=== PATIENT | female | born 1940 | race Caucasian/White ===

== ENCOUNTER 2018-01-18 10:37 | Outpatient (CLI) | payer MEDICARE | END 2018-01-18 10:38 | disposition home or self-care (01) | LOC: BICMAMMO 10:37 | PROVIDERS: ATTEND Internal Medicine Medical Oncology | DX: Z12.31 Encounter for screening mammogram for malignant neoplasm of breast (principal); Z80.3 Family history of malignant neoplasm of breast; Z85.3 Personal history of malignant neoplasm of breast | CPT/HCPCS: 77063; 77067 ==

== ENCOUNTER 2019-01-21 08:09 | Outpatient (CLI) | payer MEDICARE ==
--- NOTE | 2019-01-21 08:51 | MMO ---
Bilateral MAMMO Bilat Screen [facility]. CLINICAL HISTORY: Patient is 78 years old and is seen for screening. The patient has the following family history of breast cancer: maternal aunt. 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 The patient has a history of left Lumpectomy in May, - malignant and left Ultrasound Guided Core Biopsy in April,. VIEWS: The views performed were: bilateral craniocaudal with tomosynthesis and bilateral mediolateral oblique with tomosynthesis. FILMS COMPARED: The present examination has been compared to prior imaging studies performed at [facility] on 01/08/2015, 01/14/2016, 01/17/2017 and 01/18/2018. MAMMOGRAM FINDINGS: There are scattered fibroglandular densities. Finding 1: There are stable post operative changes seen in the left breast. Finding 2: There are stable benign appearing calcifications seen in both breasts. There are also vascular calcifications. There are no suspicious masses, suspicious calcifications, or new areas of architectural distortion. IMPRESSION: THERE IS NO MAMMOGRAPHIC EVIDENCE OF MALIGNANCY. A ROUTINE FOLLOW-UP MAMMOGRAM IN 1 YEAR IS RECOMMENDED. THE RESULTS OF THIS EXAM WERE SENT TO THE PATIENT. ACR BI-RADS Category 2 - Benign finding MAMMOGRAPHY NOTE: 1. A negative mammogram report should not delay a biopsy if a dominant of clinically suspicious mass is present. 2. Approximately 10% to 15% of breast cancers are not detected by mammography. 3. Adenosis and dense breasts may obscure an underlying neoplasm.
== END 2019-01-21 08:10 | disposition home or self-care (01) ==
LOC: BICMAMMO 08:09
PROVIDERS: ATTEND Internal Medicine Medical Oncology
DX: Z12.31 Encounter for screening mammogram for malignant neoplasm of breast (principal); Z86.000 Personal history of in-situ neoplasm of breast; Z80.3 Family history of malignant neoplasm of breast; Z98.890 Other specified postprocedural states
CPT/HCPCS: 77063; 77067

== ENCOUNTER 2020-01-22 11:38 | Outpatient (CLI) | payer OTHER | END 2020-01-22 11:39 | disposition home or self-care (01) | LOC: LAB 11:38 | PROVIDERS: ATTEND Internal Medicine Cardiovascular Disease | DX: Z01.812 Encounter for preprocedural laboratory examination (principal); Z11.59 Encounter for screening for other viral diseases; I48.0 Paroxysmal atrial fibrillation | CPT/HCPCS: 80048; 85025; 85610; 87635; U0003 ==

== ENCOUNTER 2021-02-17 09:45 | Outpatient (CLI) | payer MEDICARE | END 2021-02-17 09:46 | disposition home or self-care (01) | LOC: BICMAMMO 09:45 | PROVIDERS: ATTEND Internal Medicine Medical Oncology | DX: Z12.31 Encounter for screening mammogram for malignant neoplasm of breast (principal); Z80.3 Family history of malignant neoplasm of breast; Z85.3 Personal history of malignant neoplasm of breast; Z98.890 Other specified postprocedural states | CPT/HCPCS: 77063; 77067 ==

== ENCOUNTER 2022-01-24 09:51 | Outpatient (CLI) | payer MEDICARE ==
[2022-01-24 11:14] LABS: Hemoglobin 14.1 g/dL (12.0-15.5); Mean Corpuscular HGB CONC 32.3 g/dL (32.0-36.0); Mean Corpuscular Volume 92.8 fl (81.6-98.3); Mean Platelet Volume 10.4 fl (7.4-10.4); Platelet Count 217 10x3/uL (150-450); RBC Distribution Width 13.1 % (11.5-14.5); White Blood Cell (WBC) Count 7.4 10x3/uL (3.5-10.5)
[2022-01-24 11:33] LABS: INR-International Normal Ratio 1.2; Prothrombin Time 12.4 sec (9.5-12.1)
[2022-01-24 11:38] LABS: Anion Gap 13 mmol/L (10-20); BUN (Urea Nitrogen) 15 mg/dL (9.8-20.1); Calc. Creatinine Clearance 0 mL/min (70-130); Calcium 9.3 mg/dL (7.8-10.44); Carbon Dioxide 29 mmol/L (23-31); Chloride 101 mmol/L (98-107); Glucose 150 mg/dL (83-110); Potassium 4.2 mmol/L (3.5-5.1); Sodium 139 mmol/L (136-145)
== END 2022-01-24 09:52 | disposition home or self-care (01) ==
LOC: LABBT 09:51
PROVIDERS: ATTEND Internal Medicine Cardiovascular Disease
DX: Z01.812 Encounter for preprocedural laboratory examination (principal); I48.19 Other persistent atrial fibrillation; Z20.822 Contact with and (suspected) exposure to COVID-19
CPT/HCPCS: 80048; 85027; 85610; U0003; U0005

== ENCOUNTER 2022-01-27 09:24 | Day surgery (SDC) | payer MEDICARE ==
[2022-01-25 12:00] VITALS: BMI 23.3
[2022-01-27] MEDS ORDERED: Protamine Sulfate 50 MG/5 ML VIAL ONE (09:35)
[2022-01-27] MEDS ORDERED: Heparin 25,000 units/D5W 500 ML ONE (09:35)
[2022-01-27] MEDS ORDERED: Heparin 10,000 UNITS/ 10 ML VIAL ONE ×2 (09:35→12:51)
[2022-01-27] MEDS ORDERED: Fentanyl 100 MCG/2 ML VIAL ONE (10:36)
[2022-01-27] MEDS ORDERED: Phenylephrine 10 MG/ML VIAL ONE (11:34)
[2022-01-27] MEDS ORDERED: SUGAMMADEX SODIUM 200 MG/2 ML VIAL ONE (13:12)
== END 2022-01-27 17:45 | disposition home or self-care (01) ==
LOC: SDC 09:24
PROVIDERS: ATTEND Internal Medicine Cardiovascular Disease
DX: I48.19 Other persistent atrial fibrillation (principal); I50.22 Chronic systolic (congestive) heart failure; I49.5 Sick sinus syndrome; I11.0 Hypertensive heart disease with heart failure; E78.5 Hyperlipidemia, unspecified; Z79.899 Other long term (current) drug therapy; Z95.0 Presence of cardiac pacemaker
CPT/HCPCS: 85347 ×2; 93005; 93312; 93613; 93656; 93657; 93662; C1732; C1759; C1760; C1894; C2630; J1644; J2370; J2720; J3010

== ENCOUNTER 2022-02-18 08:50 | Outpatient (CLI) | payer MEDICARE | END 2022-02-18 08:51 | disposition home or self-care (01) | LOC: BICMAMMO 08:50 | PROVIDERS: ATTEND Internal Medicine | DX: Z12.31 Encounter for screening mammogram for malignant neoplasm of breast (principal); Z85.3 Personal history of malignant neoplasm of breast; Z98.890 Other specified postprocedural states | CPT/HCPCS: 77063; 77067 ==

== ENCOUNTER 2022-02-21 13:11 | Outpatient (CLI) | payer MEDICARE | END 2022-02-21 13:12 | disposition home or self-care (01) | LOC: ULT 13:11 | PROVIDERS: ATTEND Nurse Practitioner | DX: R11.0 Nausea (principal) | CPT/HCPCS: 76705 ==

== ENCOUNTER 2023-11-09 01:51 | Inpatient (IN) | payer MEDICARE ==
[2023-11-09] MEDS ORDERED: Midazolam HCl 2 mg/2 ml Vial ONE (02:22)
[2023-11-09] MEDS ORDERED: fentaNYL 50 mcg/mL 1 mL Vial ONE (02:28)
[2023-11-09 02:34] LABS: #Basophils 0.07 10x3/uL (0.0-0.2); %Basophils 0.8 % (0.0-1.0); %Eosinophils 1.6 % (0.0-10.0); %Lymphocytes 30.5 % (21.0-51.0); %Monocytes 11.4 % (0.0-10.0); %Neutrophils 55.6 % (42.0-75.0); Hematocrit 43.4 % (36.0-47.0); Hemoglobin 13.7 g/dL (12.0-16.0); Mean Corpuscular HGB CONC 31.6 g/dL (32.0-36.0); Mean Corpuscular Hemoglobin 28.6 pg (27.0-31.0); Mean Corpuscular Volume 90.6 fL (78.0-98.0); Mean Platelet Volume 9.9 fL (7.4-10.4); Platelet Count 179 10x3/uL (130-400); RBC Distribution Width 13.2 % (11.5-14.5); Red Blood Cell (RBC) Count 4.79 mill/uL (4.20-5.40)
[2023-11-09 02:45] LABS: INR-International Normal Ratio 1.3
[2023-11-09 02:46] LABS: PTT 25.5 sec (22.9-36.1)
[2023-11-09 02:58] LABS: ALT (SGPT) 26 U/L (8-55); AST (SGOT) 25 U/L (5-34); Albumin 3.7 g/dL (3.4-4.8); Alkaline Phosphatase 126 U/L (40-110); Anion Gap 13 mmol/L (10-20); BUN (Urea Nitrogen) 14 mg/dL (9.8-20.1); Bilirubin, Total 1.5 mg/dL (0.2-1.2); Calc. Creatinine Clearance 0 mL/min (70-130); Calcium 9.3 mg/dL (7.8-10.44); Carbon Dioxide 23 mmol/L (23-31); Chloride 103 mmol/L (98-107); Estimated GFR 53; Globulin 2.7 g/dL (2.4-3.5); Glucose 132 mg/dL (83-110); Lipase 47 U/L (8-78); Magnesium 2.1 mg/dL (1.6-2.6); Potassium 4.5 mmol/L (3.5-5.1); Protein, Total 6.4 g/dL (5.8-8.1); Sodium 134 mmol/L (136-145)
[2023-11-09 02:59] LABS: Troponin I Less than 0.010 ng/mL (< 0.028)
[2023-11-09 04:28] LABS: Influenza A by NAA Not Detected (NotDetected); Influenza B by NAA Not Detected (NotDetected); SARS-CoV-2 NAA Rapid Test DETECTED (NotDetected)
[2023-11-09] MEDS ORDERED: Acetaminophen 650 MG Suppository PR PRN (04:33)
[2023-11-09] MEDS ORDERED: Ondansetron PF 4 MG/2 ML Vial IVP PRN (04:33)
[2023-11-09 05:53] VITALS: BMI 23.3
[2023-11-09] MEDS ORDERED: Albuterol 200 PUFF (6.7GM INHALER) INH PRN (06:56)
[2023-11-09] MEDS ORDERED: Benzonatate 100 MG CAP PO PRN (06:56)
[2023-11-09] MEDS: Apixaban 2.5 MG TAB PO SCH (09:55)
[2023-11-09] MEDS: Zinc Sulfate 220 MG CAP PO SCH (09:55)
[2023-11-09] MEDS: Furosemide 40 MG TAB PO SCH (09:56)
[2023-11-09] MEDS: Ascorbic Acid 500 mg Chewable Tablet PO SCH (09:56)
[2023-11-09] MEDS: Cholecalciferol (Vitamin D3) 400 UNITS TAB PO SCH (09:57)
[2023-11-09] MEDS: Empagliflozin 10 MG TAB PO SCH (09:57)
[2023-11-09] MEDS: Magnesium Oxide 400 MG TAB PO SCH (09:57)
[2023-11-09] MEDS: Enoxaparin 40 MG (0.4 mL) SYRINGE SC SCH (21:28)
[2023-11-09] MEDS: Acetaminophen 325 MG TAB PO PRN (21:29)
[2023-11-09] MEDS: Sotalol HCl 80 MG TAB PO SCH (21:30)
[2023-11-09] MEDS: Lisinopril 20 MG TAB PO SCH (21:31)
[2023-11-09] MEDS: Atorvastatin Calcium 20 MG TAB PO SCH (21:31)
[2023-11-09] MEDS: Ondansetron ODT 4 MG TAB PO PRN (21:32)
[2023-11-10 04:16] LABS: #Basophils 0.05 10x3/uL (0.0-0.2); %Basophils 0.7 % (0.0-1.0); %Eosinophils 1.7 % (0.0-10.0); %Lymphocytes 40.2 % (21.0-51.0); %Monocytes 12.2 % (0.0-10.0); %Neutrophils 45.1 % (42.0-75.0); Hematocrit 37.8 % (36.0-47.0); Hemoglobin 12.2 g/dL (12.0-16.0); Mean Corpuscular HGB CONC 32.3 g/dL (32.0-36.0); Mean Corpuscular Hemoglobin 28.8 pg (27.0-31.0); Mean Corpuscular Volume 89.2 fL (78.0-98.0); Mean Platelet Volume 9.9 fL (7.4-10.4); Platelet Count 152 10x3/uL (130-400); RBC Distribution Width 13.5 % (11.5-14.5); Red Blood Cell (RBC) Count 4.24 mill/uL (4.20-5.40)
[2023-11-10 04:33] LABS: Anion Gap 9 mmol/L (10-20); BUN (Urea Nitrogen) 13 mg/dL (9.8-20.1); Calc. Creatinine Clearance 43 mL/min (70-130); Calcium 8.8 mg/dL (7.8-10.44); Carbon Dioxide 24 mmol/L (23-31); Chloride 108 mmol/L (98-107); Estimated GFR 63; Glucose 91 mg/dL (83-110); Potassium 4.1 mmol/L (3.5-5.1); Sodium 137 mmol/L (136-145)
[2023-11-10 11:43] VITALS: TEMP 97.4
[2023-11-10 11:51] VITALS: BP 120/79
== END 2023-11-10 13:30 | disposition home or self-care (01) | DRG 308 ==
LOC: ERS 01:51 → 2NO 04:23
PROVIDERS: ADMIT Student in an Organized Health Care Education/Training Program; ATTEND Hospitalist
PROC: 5A2204Z Restoration of Cardiac Rhythm, Single (ICD-10-PCS; principal; 2023-11-09)
DX: I47.10 Supraventricular tachycardia, unspecified (principal); U07.1 COVID-19; I50.22 Chronic systolic (congestive) heart failure; I48.0 Paroxysmal atrial fibrillation; Z88.8 Allergy status to other drugs, medicaments and biological substances; Z79.899 Other long term (current) drug therapy; Z79.01 Long term (current) use of anticoagulants; I11.0 Hypertensive heart disease with heart failure; Z95.0 Presence of cardiac pacemaker; Z90.710 Acquired absence of both cervix and uterus; Z90.89 Acquired absence of other organs; I49.5 Sick sinus syndrome; I48.92 Unspecified atrial flutter
CPT/HCPCS: 36415; 71045; 80048; 80053; 83605; 83690; 83735; 83880; 84484; 85025; 85610; 85730; 87040; 87149; 93005; J1650; J2250; J3010; Q0162